=== PATIENT | female | born 2000 | race Caucasian/White ===

== ENCOUNTER 2019-03-01 01:57 | Emergency (ER) | payer SELFPAY ==
[2019-03-01] MEDS ORDERED: Lidocaine 1% w/Epinephrine 1:100K 20 ML VIAL ONE ×2 (03:47→04:02)
--- NOTE | 2019-03-01 09:04 | CT ---
PRELIMINARY REPORT/[facility]/EMERGENCY AFTER HOURS PROCEDURE: EXAM: CT Maxillofacial Without Contrast EXAM DATE/TIME: 03/01/2019 2:46 AM CLINICAL HISTORY: 18 years old, female; Injury or trauma; Initial encounter; Blunt trauma (contusions or hematomas); No t specified; Patient HX: 18f presents to the ED with C/O laceration to the chin along with right side d jaw pain S/P fall this evening while at a bar. PT reports she had three drinks and states that she slipped on wet floor outside a bathroom TECHNIQUE: Imaging protocol: Computed tomography images of the face without contrast. COMPARISON: No relevant prior studies available. FINDINGS: Orbits: Orbits are normal. Globes are unremarkable. Sinuses: No air-fluid levels. Bones/joints: No acute fracture. Soft tissues: Soft tissue swlling along the chin. IMPRESSION: No acute fracture detected. Thank you for allowing us to participate in the care of your patient. Dictated and Authenticated by: Elizabeth Mast MD 03/01/2019 3:11 AM Central Time ([place] & [place]) FINAL REPORT CT FACIAL BONES: Date: 03/01/19 FINDINGS/IMPRESSION: Axial tomograms with multiplanar reconstruction. No evidence of facial bone fracture. I am in agreement with the preliminary report issued by [facility]. POS: OFF
--- NOTE | 2019-03-01 09:06 | CT ---
PRELIMINARY REPORT/[facility]/EMERGENCY AFTER HOURS PROCEDURE: EXAM: CT Head Without Contrast EXAM DATE/TIME: 03/01/2019 2:46 AM CLINICAL HISTORY: 18 years old, female; Injury or trauma; Initial encounter; Blunt trauma (contusions or hematomas); [place] hein HX: 18f presents to the ED with C/O laceration to the chin along with right sided jaw pain S/P fall this evening while at a bar. PT reports she had three drinks and states that she slipped on wet floor outside a bathroom TECHNIQUE: Imaging protocol: Computed tomography of the head without contrast. COMPARISON: No relevant prior studies available. FINDINGS: Brain: No hemorrhage. Unremarkable white matter. No mass effect. Ventricles: No ventriculomegaly. Bones/joints: Unremarkable. No acute fracture. Sinuses: Visualized sinuses are unremarkable. No fluid levels. Mastoid air cells: Visualized mastoid air cells are well aerated. Soft tissues: Unremarkable. IMPRESSION: No acute intracranial abnormality. Thank you for allowing us to participate in the care of your patient. Dictated and Authenticated by: Elizabeth Mast MD 03/01/2019 3:18 AM Central Time ([place] & [place]) FINAL REPORT CT HEAD: DATE: 03/01/19 FINDINGS/IMPRESSION: No acute intracranial abnormality. I am in agreement with the preliminary report issued by [facility]. POS: OFF
--- NOTE | 2019-03-01 09:07 | CT ---
PRELIMINARY REPORT/[facility]/EMERGENCY AFTER HOURS PROCEDURE: EXAM: CT Cervical Spine Without Contrast EXAM DATE/TIME: 03/01/2019 2:46 AM CLINICAL HISTORY: 18 years old, female; Injury or trauma; Initial encounter; Blunt trauma; Patient HX: 18f presents to the ED with C/O laceration to the chin along with right sided jaw pain S/P fall this evening while at a bar. PT reports she had three drinks and states that she slipped on wet floor outside a bathroom TECHNIQUE: Imaging protocol: Computed tomography images of the cervical spine without contrast. COMPARISON: No relevant prior studies available. FINDINGS: Vertebrae: No acute fracture. Normal alignment. Discs/Spinal canal/Neural foramina: No spinal stenosis. No neural foraminal narrowing. Soft tissues: Unremarkable. Lungs: Lung apices are normal. IMPRESSION: No acute findings. Thank you for allowing us to participate in the care of your patient. Dictated and Authenticated by: Elizabeth Mast MD 03/01/2019 3:20 AM Central Time ([place] & [place]) FINAL REPORT CT CERVICAL SPINE: Date: 03/01/19 FINDINGS/IMPRESSION: Axial tomograms obtained with multiplanar reconstruction. No evidence of cervical spine fracture. I am in agreement with the preliminary report issued by [facility]. POS: OFF
== END 2019-03-01 06:02 | disposition home or self-care (01) ==
LOC: ERS 01:57
DX: S01.81XA Laceration without foreign body of other part of head, initial encounter (principal); Z23 Encounter for immunization; W18.30XA Fall on same level, unspecified, initial encounter
CPT/HCPCS: 70450; 70486; 72125; J2001